=== PATIENT | male | born 1995 | race Caucasian/White ===

== ENCOUNTER 2021-01-21 09:03 | Emergency (ER) | payer SELFPAY ==
[2021-01-21 09:22] VITALS: BP 151/88; PULSE 89; RESP 19; TEMP 37; O2SAT 99; BMI 23.6
--- NOTE | 2021-01-21 09:30 | [facility].EDUTC ---
[facility] [place] Disposition Clinical Impression: Strep throat Disposition: Home, Self-Care Condition on Discharge: Good Instructions: DI for Strep Throat, Strep Throat (Alternative Therapy), Amoxicillin Additional Instructions: *Monitor Temp, Over the counter Motrin or Tylenol as directed/as needed Tylenol every 4 hours and Motrin every 6 hours (as long as your family doctor has told you that you can take it) for fever or pain. and straight to ER if unable to lower temp less than 101.0 after medication given *Warm salt water gargles may help to soothe the throat *Throat Lozenges *Warm fluids like tea with honey may help to soothe the throat *Sleep elevated *Humidifier/Vaporizer *If you did not take Penicillin shot or was unable to, start taking antibiotic immediately and make sure that you take it for the FULL length of time although you should start to feel better in 24-48 hours *change toothbrush and toothpaste 24-48 hours after starting to take antibiotics so you do not reinfect yourself Monitor Temp. Tylenol and/or Ibuprofen as needed. ER if fever is no less than 101 despite alternating Tylenol and Ibuprofen * Encourage fluids, water, Gatorade, powerade, pedialyte if infant/toddler/or child *Cold fluids, popsicles and ice cream may feel good on his throat Follow up IMMEDIATELY for new or worsening symptoms or no Noticeable improvement over the next 48-72 hours. 911 for difficulty breathing or swallowing Prescriptions: Amoxicillin [Amoxicillin 875MG Tab] 875 mg PO Q12H #20 tab Transmission Status: Pending to [facility]/pharmacy #[id number] Referrals: Prosper Yeboah MD [Primary Care Provider] - As needed Time of Disposition: 09:35 Medical Decision Making - Juan Inquiry Pt receiving controlled substance: No Juan was queried for this patient: No Vital Signs: 01/21/21 09:22 Temperature 98.6 F Temperature Source Oral Pulse Rate [Right Brachial] 89 Respiratory Rate 19 Blood Pressure [Right Arm] 151/88 H Blood Pressure Mean [Right Arm] 109 Blood Pressure Source [Right Arm] Automatic Cuff Blood Pressure Position [Right Arm] Sitting 02 Sat by Pulse Oximetry 99 Oxygen Delivery Method Room Air - Lab Data Lab results reviewed: Yes: I reviewed the patient's lab results. [facility] [place] HPI - General Stated complaint: sinus congestion, cough, runny nose, headache Time Seen by Provider: 01/21/21 09:30 Mode of Arrival: Ambulatory Source of Information: Patient Limitations: No Limitations Description of Symptoms (Recalled from Triage Doc. by RN): congestion, sore throat, headache, runny nose HEENT Symptoms (Recalled from RN notes): No Resp Symptoms (Recalled from RN notes): Yes Skin Symptoms (Recalled from RN notes): No MS Symptoms (Recalled from RN notes): No Functional Status (Recalled from RN notes): yes - History of Present Illness Provider Complaint: Patient states that daughter was sick earlier in the week and on he started having sore throat, nasal congestion and cough States that he hasnt had a fever or anything that he is aware of but has had headache State that he has not been around anyone with COVID - Related Data Previous Rx's Medication Instructions Recorded Amoxicillin [Amoxicillin 875MG 875 mg PO Q12H #20 tab 01/21/21 Tab] Allergies Allergy/AdvReac Type Severity Reaction Status Date / Time acetaminophen Allergy Verified 01/21/21 09:31 - Worker's Comp Is this a Worker's Comp case?: No Is this an [facility] Worker's Comp?: No Is this a [place] Worker's Comp?: No [facility] History - Hepatitis A Screen Drug use history?: No High risk sexual behaviors?: No History of sexually transmitted infection?: No Currently employed?: No Childcare worker?: No Do you have indoor plumbing?: Yes Do you have electricity?: Yes Attestation statement:: This patient has been screened for Hepatitis A risk factors. I have reviewed the patient's past medical history: Yes - Social History Alcohol Intake: nev
[2021-01-21 09:41] LABS: UTC Strep Screen (Rapid) Positive (Negative)
[2021-01-21 09:45] VITALS: BP 151/88; PULSE 89; RESP 19; TEMP 37; O2SAT 99
== END 2021-01-21 09:45 | disposition home or self-care (01) ==
PROVIDERS: Emergency Provider Nurse Practitioner; PCP Family Medicine
DX: J02.0 Streptococcal pharyngitis (principal); R51.9 Headache, unspecified; R09.81 Nasal congestion
CPT/HCPCS: 87880; 99202; G0463